=== PATIENT | male | born 1975 | race Hispanic/Latino ===

== ENCOUNTER 2018-08-18 17:55 | Emergency (ER) | payer SELFPAY ==
[2018-08-18] MEDS ORDERED: Ibuprofen 800 MG TAB ONE (19:11)
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
== END 2018-08-18 20:38 | disposition home or self-care (01) ==
LOC: ERS 17:55
DX: S61.512A Laceration without foreign body of left wrist, initial encounter (principal); S16.1XXA Strain of muscle, fascia and tendon at neck level, initial encounter; V43.52XA Car driver injured in collision with other type car in traffic accident, initial encounter